=== PATIENT | male | born 1990 | race Hispanic/Latino ===

== ENCOUNTER 2019-11-25 10:01 | Observation (INO) | payer MEDICAID ==
[~2019-11-25] VITALS: Ht 170.2 cm; Wt 52.6 kg
[2019-11-25 10:25] LABS: BASOPHILS % (AUTO) 0.3 % (0.0-5.0); LYMPHOCYTES % (AUTO) 6.3 % (21.0-51.0); MEAN CORPUSCULAR HEMOGLOBIN 30.1 pg (27.0-33.0); MEAN CORPUSCULAR HGB CONC 31.2 g/dL (32.0-36.0); MEAN CORPUSCULAR VOLUME 96.4 fL (79-99); MONOCYTES % (AUTO) 4.5 % (3.0-13.0); NEUTROPHILS % (AUTO) 86.2 % (40.0-77.0); PLATELET COUNT (AUTO) 207 K/uL (130-400); RED BLOOD CELL COUNT(AUTO) 1.96 MIL/uL (4.50-6.20); RED CELL DISTRIBUTION WIDTH 25.7 % (11.0-15.5)
[2019-11-25 10:31] LABS: HEMATOCRIT 18.9 % (42-54); WHITE BLOOD COUNT (AUTO) 37.7 K/uL (4.8-10.8)
[2019-11-25 10:35] LABS: CARBON DIOXIDE 20 mmol/L (21-32); CHLORIDE 97 mmol/L (101-111); CREATININE 1.5 mg/dL (0.5-1.5); GLOMERULAR FILTR. RATE CALC 58 mL/min (>60); GLUCOSE,RANDOM 104 mg/dL (70-105); POTASSIUM 4.3 mmol/L (3.5-5.1); SODIUM SERUM 128 mmol/L (136-145); UREA NITROGEN, BLOOD 27 mg/dL (7-18)
[2019-11-25 10:38] LABS: INR 1.56 (0.85-1.15); PARTIAL THROMBOPLASTIN TIME 34.8 SEC (26.3-35.5); PROTHROMBIN TIME 16.6 SEC (9.6-11.6)
[2019-11-25 10:50] LABS: ALANINE AMINOTRANSFERASE 19 U/L (12-78); ALBUMIN 1.5 g/dL (3.5-5.0); AMYLASE 12 U/L (25-115); TOTAL PROTEIN, SERUM 7.2 g/dL (6.0-8.3)
[2019-11-25] MEDS ORDERED: SODIUM CHLORIDE 0.9% 1000ML 1,000 ML IV ONE (11:04)
[2019-11-25] MEDS ORDERED: CEFEPIME HCL 1 GM VIAL ONE (11:04)
[2019-11-25] MEDS ORDERED: SODIUM CHLORIDE 0.9% 100 ML IV ONE (11:05)
[2019-11-25 11:08] LABS: LIPASE < 50 U/L (114-286)
[2019-11-25 11:13] LABS: BILIRUBIN,TOTAL 16.1 mg/dL (0.2-1.0)
[2019-11-25 11:14] LABS: AMMONIA < 3 umol/L (11-32)
[2019-11-25 11:15] LABS: EOSINOPHILS % (MANUAL) 2 % (1-6); LYMPHOCYTES % (MANUAL) 8 % (22-44); MONOCYTES % (MANUAL) 5 % (2-9); SEGMENTED NEUTROPHILS % 85 % (40-70)
[2019-11-25 11:16] LABS: MAN.DIFF COMMENT-IMPRESSION MANUAL DIFFERENTIAL; PLATELET MORPHOLOGY COMMENT ADEQUATE
[2019-11-25 11:27] LABS: ASPARTATE AMINOTRANSFERASE 111 U/L (10-37)
[2019-11-25 11:30] VITALS: BP 95/51
[2019-11-25] MEDS ORDERED: SODIUM CHLORIDE 0.9% 250 ML IV ONE (12:14)
[2019-11-25] MEDS ORDERED: GUAIFENESIN SUGAR-FREE 100 MG/5 ML UDCUP PO PRN (12:30)
[2019-11-25] MEDS ORDERED: LACTULOSE 20 GM/30 ML UDCUP PO PRN (12:30)
[2019-11-25] MEDS ORDERED: MAG HYDROX/AL HYDROX/SIMETH ES 30 ML SUSP UDCUP PO PRN (12:30)
[2019-11-25] MEDS ORDERED: SODIUM CHLORIDE 0.9% 1000ML 1,000 ML IV SCH (12:30)
[2019-11-25] MEDS ORDERED: DiphenhydrAMINE HCL 50 MG/ML VIAL IVP PRN (12:30)
[2019-11-25] MEDS ORDERED: DIPHENHYDRAMINE HCL 25 MG CAPSULE PO PRN (12:30)
[2019-11-25] MEDS ORDERED: GUAIFENESIN-DM 200/20 MG 10 ML PO PRN (12:30)
[2019-11-25] MEDS ORDERED: NITROGLYCERIN 0.4 MG SL TAB SL PRN (12:30)
[2019-11-25] MEDS ORDERED: CLONIDINE HCL 0.1 MG TABLET PO PRN (12:30)
[2019-11-25] MEDS ORDERED: ACETAMINOPHEN 325 MG TAB PO PRN ×2 (12:30)
[2019-11-25] MEDS ORDERED: ONDANSETRON HCL 4 MG/2 ML VIAL IVP PRN (12:30)
[2019-11-25] MEDS ORDERED: ZOLPIDEM TARTRATE 5 MG TAB PO PRN (12:30)
[2019-11-25] MEDS ORDERED: CEFEPIME HCL 1 GM VIAL IVP SCH (13:00)
[2019-11-25] MEDS ORDERED: FURO20TA4 PO (14:19)
[2019-11-25] MEDS ORDERED: FOLI0.8T PO (14:19)
[2019-11-25] MEDS ORDERED: LACT10SO9 PO (14:19)
[2019-11-25] MEDS ORDERED: SPIR50TA5 PO (14:19)
--- NOTE | 2019-11-25 15:29 | NUR ---
U/S GD PARACENTESIS PROCEDURE PERFORMED BY DR Aleida ERNANDEZ AT BEDSIDE. PUNCTURE SITE RLQ AND PATIENT TOLERATED PROCEDURE WELL. TOTAL REMOVED 3.1 LITERS OF CLEAR YELLOW FLUID. END OF PROCEDURE AT 1510. CATHETER REMOVED AND DRESSING APPLIED. NO BLEEDING NOTED. REPORT GIVEN TO Ismael VARGAS RN. AAO X3 WITH NO C/O PAIN.
[2019-11-25 16:00] VITALS: BP 92/50
[2019-11-25 18:08] LABS: HEMATOCRIT 22.4 % (42-54)
--- NOTE | 2019-11-25 19:22 | NUR ---
PT REQUESTING TO LEAVE PATIENT CALLED NURSE INTO ROOM STATED THAT HE WOULD LIKE TO GO HOME. PATIENT WAS ADVISED THAT IT WOULD BE A GOOD IDEA TO STAY IN HOSPITAL TO MONITOR HGB/HCT LEVELS BETTER AND TRANSFUSE BLOOD NEEDED. FAMILY MEMBER ON THE PHONE ENCOURAGED PATIENT TO STAY IN HOSPITAL WELL. PATIENT CONTINUED TO DECIDE TO GO HOME.
--- NOTE | 2019-11-25 19:45 | NUR ---
DISCHARGED AMA PATIENT SIGNED AMA PAPERWORK, IV CATHETER WAS REMOVED CATHETER TIP WAS INTACT, SITE TO RIGHT LOWER ABD FROM PARACENTESIS DRESSING DRY AND INTACT. PATIENT WAS ASSISTED OUT OF THE BUILDING AT THIS TIME. DR. STARKS MADE AWARE, NO NEW ORDERS GIVEN.
== END 2019-11-25 19:45 | disposition left against medical advice (07) ==
LOC: EDH 10:01 → EDHIP 11:22 → 4DH 11:45
PROVIDERS: ADMIT Internal Medicine; ATTEND Internal Medicine
DX: R18.8 Other ascites (principal); R41.82 Altered mental status, unspecified; F10.10 Alcohol abuse, uncomplicated; I85.10 Secondary esophageal varices without bleeding; K65.2 Spontaneous bacterial peritonitis; A41.9 Sepsis, unspecified organism
CPT/HCPCS: 36415; 36430 ×2; 49083; 80053; 82140; 82150; 83605 ×2; 83690; 85014; 85018; 85025; 85610; 85730; 86850; 86900; 86901; 86922; 87040 ×2; 96361; 96374; 99284; A4215; G0378 ×6; J0692 ×2; J7030 ×2; P9016; J7050